=== PATIENT | male | born 1940 | race Two or more races ===

== ENCOUNTER 2022-05-11 08:33 | Day surgery (SDC) | payer OTHER ==
[~2022-05-11 08:33] MED LIST: AVODART0.5 MG PO; COZAAR100 MG PO; ELIQUIS5 MG PO; LIPITOR40 MG PO; NORVASC5 MG PO; TAMS0.4C PO; TOPROL XL25 M1 PO; ZOCOR20 MG PO
== END 2022-05-11 20:00 | disposition home or self-care (01) ==
LOC: CIR.AMB 08:33
PROVIDERS: ATTEND Urology
DX: C67.9 Malignant neoplasm of bladder, unspecified (principal); D41.4 Neoplasm of uncertain behavior of bladder; Z20.822 Contact with and (suspected) exposure to COVID-19; I10 Essential (primary) hypertension; E78.00 Pure hypercholesterolemia, unspecified; Z87.891 Personal history of nicotine dependence

== ENCOUNTER 2022-05-14 14:16 | Emergency (ER) | payer OTHER ==
[~2022-05-14] VITALS: Ht 167.6 cm; Wt 79.8 kg
== END 2022-05-15 00:45 | disposition home or self-care (01) ==
LOC: ER 14:16
DX: C67.9 Malignant neoplasm of bladder, unspecified (principal); I10 Essential (primary) hypertension

== ENCOUNTER → 2022-07-13 16:18 | Outpatient (CLI) | payer OTHER | END | disposition home or self-care (01) | LOC: LAB 16:18 | PROVIDERS: ATTEND Urology | DX: C67.9 Malignant neoplasm of bladder, unspecified (principal); N30.00 Acute cystitis without hematuria ==

== ENCOUNTER 2022-08-24 14:54 | Outpatient (CLI) | payer OTHER | END 2022-08-24 14:58 | disposition home or self-care (01) | LOC: LAB 14:54 | PROVIDERS: ATTEND Urology | DX: N30.00 Acute cystitis without hematuria (principal) ==

== ENCOUNTER 2022-12-04 10:13 | Outpatient (CLI) | payer OTHER ==
[2022-12-04 11:46] LABS: HEMATOCRIT 37.1 % (39.0-48.0); MEAN CELL VOLUME 94.5 fL (80.0-100.00); MEAN CORPUSCULAR HEMOGLOBIN 30.7 pg (27.00-32.0); MEAN CORPUSCULAR HGB CONC 32.5 g/dl (32.0-36.0); PLATELET COUNT 148 K/uL (150-450); RED BLOOD COUNT 3.93 M/uL (4.00-6.00); RED CELL DISTRIBUTION WIDTH 15.9 % (11.5-14.5)
[2022-12-04 12:12] LABS: FOLIC ACID 10.58 ng/ml (4.78-20)
[2022-12-04 13:16] LABS: % SATURACION 12.2 % (20-50); ALBUMIN 3.3 gm/dL (3.4-5.0); BILIRUBIN TOTAL 0.69 mg/dL (0.3-1.2); CALCIUM 8.5 mg/dL (8.5-10.1); CREATININE SERUM 1.13 mg/dL (0.70-1.30); FERRITIN 47.1 NG/ML (26-388); GFR 62.13; POTASSIUM 4.92 mEq/L (3.5-5.1); TOTAL PROTEIN 6.3 gm/dL (6.4-8.2)
[2022-12-04 13:17] LABS: PROSTATIC SPECIFIC ANTIGEN 7.31 NG/ML (0.010-4.00)
== END 2022-12-04 10:16 | disposition home or self-care (01) ==
LOC: LAB 10:13
PROVIDERS: ATTEND Internal Medicine Hematology & Oncology
DX: D50.8 Other iron deficiency anemias (principal); I10 Essential (primary) hypertension; R74.02 Elevation of levels of lactic acid dehydrogenase [LDH]; K76.89 Other specified diseases of liver; D68.61 Antiphospholipid syndrome; D47.2 Monoclonal gammopathy; C90.00 Multiple myeloma not having achieved remission; R97.0 Elevated carcinoembryonic antigen [CEA]; R97.8 Other abnormal tumor markers; R97.20 Elevated prostate specific antigen [PSA]; D51.3 Other dietary vitamin B12 deficiency anemia; I83.811 Varicose veins of right lower extremity with pain; E78.2 Mixed hyperlipidemia; N40.1 Benign prostatic hyperplasia with lower urinary tract symptoms

== ENCOUNTER 2022-12-06 09:07 | Outpatient (CLI) | payer OTHER | END 2022-12-06 09:08 | disposition home or self-care (01) | LOC: NUCLEAR 09:07 | PROVIDERS: ATTEND Internal Medicine | DX: I11.9 Hypertensive heart disease without heart failure (principal); I25.10 Atherosclerotic heart disease of native coronary artery without angina pectoris; I73.9 Peripheral vascular disease, unspecified ==

== ENCOUNTER 2022-12-07 07:10 | Outpatient (CLI) | payer OTHER | END 2022-12-07 07:11 | disposition home or self-care (01) | LOC: NUCLEAR 07:10 | PROVIDERS: ATTEND Internal Medicine | DX: I11.9 Hypertensive heart disease without heart failure (principal); I25.10 Atherosclerotic heart disease of native coronary artery without angina pectoris; I73.9 Peripheral vascular disease, unspecified ==

== ENCOUNTER 2023-01-25 11:08 | Inpatient (IN) | payer OTHER ==
[~2023-01-25] VITALS: Ht 165.1 cm; Wt 74.4 kg
[2023-01-25 13:19] LABS: HEMATOCRIT 35.8 % (39.0-48.0); HEMOGLOBIN 11.8 g/dL (13-16.00); MEAN CELL VOLUME 94.8 fL (80.0-100.00); MEAN CORPUSCULAR HEMOGLOBIN 31.2 pg (27.00-32.0); MEAN CORPUSCULAR HGB CONC 32.9 g/dl (32.0-36.0); PLATELET COUNT 183 K/uL (150-450); RED BLOOD COUNT 3.78 M/uL (4.00-6.00); RED CELL DISTRIBUTION WIDTH 16.3 % (11.5-14.5)
[2023-01-25 13:45] LABS: ALBUMIN 3.2 gm/dL (3.4-5.0); BILIRUBIN TOTAL 2.64 mg/dL (0.3-1.2); CALCIUM 8.7 mg/dL (8.5-10.1); CREATININE SERUM 1.51 mg/dL (0.70-1.30); GFR 44.46; GLOBULINA 3.2 G/DL (2.4-3.5); POTASSIUM 4.28 mEq/L (3.5-5.1); TOTAL PROTEIN 6.4 gm/dL (6.4-8.2)
[2023-01-25 14:13] LABS: PH,URINE 5.5 (5.0-8.0); URINE APPEARANCE Clear; URINE BILIRRUBIN Negative (NEGATIVE); URINE BLOOD Negative; URINE COLOR Yellow; URINE GLUCOSE Negative (NEGATIVE); URINE LEUKOCYTE Trace; URINE NITRATE Negative; URINE PROTEIN 30 (NEGATIVE)
[2023-01-25 14:17] LABS: URINE BACTERIA 22.6 uL (0.0-1933); URINE RBC 7.3 uL (0.0-20.8); URINE WBC 24.5 uL (0.0-23.2)
[2023-01-25 15:11] LABS: ABG PH 7.373 (7.35-7.45); ABG pCO2 41.6 mmHg (35-45); BASE EXCESS -1.5 mmol/l; BICARBONATE 23.7 mmol/l (23-25); SaO2 83.8 %
[2023-01-25 15:12] LABS: allen test SATISFACTORY; o2 21 %; puncture site RADIAL RIGHT
[2023-01-25 21:09] LABS: ABG PH 7.372 (7.35-7.45); ABG pCO2 41.6 mmHg (35-45)
[2023-01-25 21:10] LABS: ABG PO2 59.3 mmHg (80-100); BASE EXCESS -1.6 mmol/l; BICARBONATE 23.6 mmol/l (23-25); SaO2 89.4 %; Tco2 24.8 mmol/l; allen test SATISFACTORY; o2 50 %; puncture site RADIAL RIGHT
[2023-01-26 08:45] LABS: ALBUMIN 2.8 gm/dL (3.4-5.0); BILIRUBIN TOTAL 1.55 mg/dL (0.3-1.2); BILIRUBIN,CONJUGATED 0.55 mg/dL (0.0-0.2); CALCIUM 8.2 mg/dL (8.5-10.1); CHOL HDL RATIO 2.1 (0-5.0); CREATININE SERUM 1.28 mg/dL (0.70-1.30); GFR 53.8; GLOBULINA 2.9 G/DL (2.4-3.5); MAGNESIUM 1.9 mg/dL (1.8-2.4); POTASSIUM 4.07 mEq/L (3.5-5.1); TOTAL PROTEIN 5.7 gm/dL (6.4-8.2); TSH 1.01 uIU/mL (0.358-3.74)
[2023-01-26 08:51] LABS: HEMATOCRIT 31.8 % (39.0-48.0); HEMOGLOBIN 10.7 g/dL (13-16.00); MEAN CELL VOLUME 93.3 fL (80.0-100.00); MEAN CORPUSCULAR HEMOGLOBIN 31.4 pg (27.00-32.0); MEAN CORPUSCULAR HGB CONC 33.7 g/dl (32.0-36.0); PLATELET COUNT 193 K/uL (150-450); RED BLOOD COUNT 3.41 M/uL (4.00-6.00); RED CELL DISTRIBUTION WIDTH 16.7 % (11.5-14.5)
[2023-01-26 09:06] LABS: PROSTATIC SPECIFIC ANTIGEN 6.52 NG/ML (0.010-4.00)
[2023-01-26 09:51] LABS: ERYTHROCYTE SEDIMENTATION RATE 127 mm/hr
[2023-01-27 18:01] LABS: ABG PH 7.403 (7.35-7.45); ABG pCO2 47.1 mmHg (35-45); BASE EXCESS 3.2 mmol/l; BICARBONATE 28.7 mmol/l (23-25); SaO2 81.5 %; Tco2 30.2 mmol/l
[2023-01-27 18:02] LABS: allen test SATISFACTORY; o2 21 %; puncture site RADIAL RIGHT
[2023-01-28 05:18] LABS: HEMOGLOBIN 10.2 g/dL (13-16.00); MEAN CELL VOLUME 93.8 fL (80.0-100.00); MEAN CORPUSCULAR HEMOGLOBIN 31.7 pg (27.00-32.0); MEAN CORPUSCULAR HGB CONC 33.8 g/dl (32.0-36.0); PLATELET COUNT 207 K/uL (150-450); RED CELL DISTRIBUTION WIDTH 16.2 % (11.5-14.5)
[2023-01-28 05:42] LABS: ALBUMIN 2.5 gm/dL (3.4-5.0); BILIRUBIN TOTAL 0.78 mg/dL (0.3-1.2); CALCIUM 9.1 mg/dL (8.5-10.1); CREATININE SERUM 0.98 mg/dL (0.70-1.30); GFR 73.22; GLOBULINA 4.1 G/DL (2.4-3.5); POTASSIUM 4.54 mEq/L (3.5-5.1); TOTAL PROTEIN 6.6 gm/dL (6.4-8.2)
[2023-01-28 11:10] LABS: ABG PH 7.408 (7.35-7.45); ABG PO2 83.3 mmHg (80-100); ABG pCO2 58.1 mmHg (35-45); BASE EXCESS 8.9 mmol/l; BICARBONATE 35.9 mmol/l (23-25); SaO2 96.5 %; Tco2 37.6 mmol/l; o2 50 %
[2023-01-28 11:11] LABS: allen test SATISFACTORY; puncture site RADIAL RIGHT
[2023-01-28] MEDS ORDERED: GEMCITABINE HCL1 GM (13:44)
[2023-01-28] MEDS ORDERED: DOCETAXEL20 MG/1 ML (13:44)
[2023-01-28] MEDS ORDERED: PENTOXIFYLLINE400 MG (13:45)
[2023-01-28] MEDS ORDERED: GABAPENTIN100 M2 (13:45)
[2023-01-28] MEDS ORDERED: FUROSEMIDE20 MG (13:45)
[2023-01-28] MEDS ORDERED: CLOPIDOGREL BIS75 MG (13:45)
[2023-01-29 21:26] LABS: PH,URINE 5.5 (5.0-8.0); URINE APPEARANCE Clear; URINE BILIRRUBIN Negative (NEGATIVE); URINE BLOOD Negative; URINE COLOR Yellow; URINE GLUCOSE Negative (NEGATIVE); URINE LEUKOCYTE Negative; URINE NITRATE Negative; URINE PROTEIN Negative (NEGATIVE)
[2023-01-29 21:29] LABS: URINE BACTERIA 6.2 uL (0.0-1933); URINE EPITHELIAL CELLS 9.7 uL (0.0-38.8); URINE RBC 2.8 uL (0.0-20.8)
[2023-01-30 07:04] LABS: MYCOPLASMA PNEUMONIAE IGM NON REACTIVE (NO REACTIVE)
[2023-01-31 13:30] LABS: ABG PO2 45.1 mmHg (80-100)
[2023-02-01 06:11] LABS: HEMOGLOBIN 11.6 g/dL (13-16.00); MEAN CELL VOLUME 91.3 fL (80.0-100.00); MEAN CORPUSCULAR HEMOGLOBIN 31.1 pg (27.00-32.0); PLATELET COUNT 192 K/uL (150-450); RED BLOOD COUNT 3.73 M/uL (4.00-6.00); RED CELL DISTRIBUTION WIDTH 15.8 % (11.5-14.5)
[2023-02-01 07:10] LABS: ALBUMIN 2.6 gm/dL (3.4-5.0); BILIRUBIN TOTAL 0.52 mg/dL (0.3-1.2); CALCIUM 8.3 mg/dL (8.5-10.1); CREATININE SERUM 0.87 mg/dL (0.70-1.30); GFR 84.01; GLOBULINA 2.5 G/DL (2.4-3.5); MAGNESIUM 2.6 mg/dL (1.8-2.4); PHOSPHOROUS 3.3 mg/dL (2.5-4.9); POTASSIUM 4.37 mEq/L (3.5-5.1); TOTAL PROTEIN 5.1 gm/dL (6.4-8.2)
[2023-02-01 07:21] LABS: C-REACTIVE PROTEIN 1.2 MG/DL (0.00-0.29)
== END 2023-02-02 17:03 | disposition home or self-care (01) | DRG 308 ==
LOC: ER 11:08 → ICU-2 17:39 → ICU 01-28 04:34 → SURH 01-30 18:40 → ICU 01-30 18:41 → SURH 01-30 19:47
PROVIDERS: Emergency Medicine; Internal Medicine; Internal Medicine Infectious Disease; ADMIT Specialist; ATTEND Specialist
PROC: BB24ZZZ Computerized Tomography (CT Scan) of Bilateral Lungs (ICD-10-PCS; principal; 2023-01-25)
PROC: 3E0F7GC Introduction of Other Therapeutic Substance into Respiratory Tract, Via Natural or Artificial Opening (ICD-10-PCS; 2023-01-25)
PROC: 02HV33Z Insertion of Infusion Device into Superior Vena Cava, Percutaneous Approach (ICD-10-PCS; 2023-01-28)
PROC: 5A0935A Assistance with Respiratory Ventilation, Less than 24 Consecutive Hours, High Flow/Velocity Cannula (ICD-10-PCS; 2023-01-29)
PROC: 4A12X4Z Monitoring of Cardiac Electrical Activity, External Approach (ICD-10-PCS; 2023-01-31)
DX: I48.0 Paroxysmal atrial fibrillation (principal); I50.31 Acute diastolic (congestive) heart failure; J18.9 Pneumonia, unspecified organism; J44.1 Chronic obstructive pulmonary disease with (acute) exacerbation; I11.0 Hypertensive heart disease with heart failure

== ENCOUNTER 2024-07-08 10:14 | Outpatient (CLI) | payer OTHER ==
[~2024-07-08 10:14] MED LIST changes: +CLOPIDOGREL BIS75 MG; +DOCETAXEL20 MG/1 ML; +FUROSEMIDE20 MG; +GABAPENTIN100 M2; +GEMCITABINE HCL1 GM; +PENTOXIFYLLINE400 MG
[2024-07-08 11:07] LABS: EOS % 7.2 % (0.7-7.0); HEMATOCRIT 27.9 % (40.1-51.0); LYMPH # 2.01 (1.18-3.74); LYMPH % 29.1 % (19.3-53.1); MEAN CORPUSCULAR HEMOGLOBIN 31.9 pg (25.6-32.2); MONO % 8.7 % (4.7-12.5); NEUT # 3.69 (1.56-6.13); NEUT % 53.6 % (34.0-71.1); PLATELET COUNT 185 K/uL (163-369); RED BLOOD COUNT 2.76 M/uL (4.63-6.08); RED CELL DISTRIBUTION WIDTH 14.9 % (11.6-14.4)
[2024-07-08 11:17] LABS: HEMOGLOBIN 8.8 g/dL (13.7-17.5)
[2024-07-08 12:20] LABS: BILIRUBIN TOTAL 0.86 mg/dL (0.3-1.2); CALCIUM 8.2 mg/dL (8.5-10.1); CREATININE SERUM 1.13 mg/dL (0.70-1.30); GFR 61.82; GLOBULINA 2.5 G/DL (2.4-3.5); POTASSIUM 4.36 mEq/L (3.5-5.1); TOTAL PROTEIN 5.5 gm/dL (6.4-8.2)
[2024-07-08 14:28] LABS: FOLIC ACID > 20.00 ng/ml (4.78-20)
[2024-07-08 15:09] LABS: FERRITIN 377.2 NG/ML (26-388)
[2024-07-10 11:13] LABS: kappa light 37.5 mg/L (3.3-19.4); lambda light 41.7 mg/L (5.7-26.3)
== END 2024-07-08 10:20 | disposition home or self-care (01) ==
LOC: LAB 10:14
PROVIDERS: ATTEND Internal Medicine Hematology & Oncology
DX: C90.00 Multiple myeloma not having achieved remission (principal); D50.8 Other iron deficiency anemias; R79.9 Abnormal finding of blood chemistry, unspecified; I10 Essential (primary) hypertension; R74.02 Elevation of levels of lactic acid dehydrogenase [LDH]; K76.89 Other specified diseases of liver; D47.2 Monoclonal gammopathy; D68.61 Antiphospholipid syndrome; D51.3 Other dietary vitamin B12 deficiency anemia; I82.811 Embolism and thrombosis of superficial veins of right lower extremity; E78.2 Mixed hyperlipidemia; N40.1 Benign prostatic hyperplasia with lower urinary tract symptoms; I70.213 Atherosclerosis of native arteries of extremities with intermittent claudication, bilateral legs

== ENCOUNTER 2024-08-17 10:44 | Outpatient (CLI) | payer OTHER ==
[2024-08-17 11:17] LABS: BASO % 1.2 % (0.1-1.2); EOS # 0.51 (0.04-0.54); EOS % 15.0 % (0.7-7.0); LYMPH # 1.64 (1.18-3.74); LYMPH % 48.4 % (19.3-53.1); MEAN PLATELET VOLUME 12.20 fl (9.4-12.4); MONO # 0.67 (0.24-0.82); NEUT # 0.53 (1.56-6.13); NEUT % 15.6 % (34.0-71.1); RED CELL DISTRIBUTION WIDTH 16.5 % (11.6-14.4)
[2024-08-17 11:26] LABS: MONO % 19.8 % (4.7-12.5)
[2024-08-17 12:27] LABS: ALT/SGPT 22.0 U/L (12-78); AST/SGOT 9.0 U/L (15-37); BILIRUBIN TOTAL 1.31 mg/dL (0.3-1.2); BUN CREA RATIO 20.0 (7.0-25.0); CREATININE SERUM 1.18 mg/dL (0.70-1.30); GFR 58.81; GLOBULINA 2.2 G/DL (2.4-3.5); GLUCOSE FASTING 94.0 mg/dL (65-100); LDH 106.0 U/L (87-241); OSMOLALITY SERUM 292.0 MOSM/KG (275-295)
== END 2024-08-17 10:46 | disposition home or self-care (01) ==
LOC: LAB 10:44
PROVIDERS: ATTEND Internal Medicine Hematology & Oncology
DX: C90.00 Multiple myeloma not having achieved remission (principal); E72.11 Homocystinuria; D50.0 Iron deficiency anemia secondary to blood loss (chronic); D51.3 Other dietary vitamin B12 deficiency anemia; I82.B11 Acute embolism and thrombosis of right subclavian vein; E78.2 Mixed hyperlipidemia; N40.1 Benign prostatic hyperplasia with lower urinary tract symptoms; I70.213 Atherosclerosis of native arteries of extremities with intermittent claudication, bilateral legs; D50.8 Other iron deficiency anemias; I10 Essential (primary) hypertension; R74.02 Elevation of levels of lactic acid dehydrogenase [LDH]; K76.89 Other specified diseases of liver